=== PATIENT | male | born 1975 | race Caucasian/White ===

== ENCOUNTER 2025-01-08 10:07 | Outpatient (CLI) | payer MEDICAID | END 2025-01-08 23:59 | disposition home or self-care (01) | LOC: MRI02 10:07 | PROVIDERS: ATTEND Nurse Practitioner Family | DX: S83.91XA Sprain of unspecified site of right knee, initial encounter (principal); M25.461 Effusion, right knee; X58.XXXA Exposure to other specified factors, initial encounter; Y93.89 Activity, other specified; Y92.89 Other specified places as the place of occurrence of the external cause; Y99.8 Other external cause status | CPT/HCPCS: 73721 ==